=== PATIENT | female | born 1930 | race African-American/Black ===

== ENCOUNTER 2017-01-29 05:32 | Emergency (ER) | payer MEDICARE ==
[2017-01-29 04:33] LABS: BASOPHILS 0.5 %; BASOPHILS ABSOLUTE 0.04 10/3/uL (0.0-0.16); EOSINOPHILS 4.7 %; EOSINOPHILS ABSOLUTE 0.37 10/3/uL (0.0-0.53); HEMATOCRIT 40.5 % (36.0-48.0); HEMOGLOBIN 13.8 g/dL (12.0-16.0); IMMATURE GRANULOCYTES 0.1 %; IMMATURE GRANULOCYTES ABSOLUTE 0.01 10/3/uL (0.0-0.11); LYMPHOCYTES 26.3 %; LYMPHOCYTES ABSOLUTE 2.06 10/3/uL (0.67-4.30); MEAN CORPUS HGB CONC 34.1 g/dL (32.0-36.0); MEAN CORPUSCULAR HEMOGLOB 31.8 pg (26.0-34.0); MEAN CORPUSCULAR VOLUME 93.3 fL (80-100); MEAN PLATELET VOLUME 10.2 fL (9.2-13.0); MONOCYTES ABSOLUTE 0.55 10/3/uL (0.21-1.20); NEUTROPHILS 61.4 %; PLATELET COUNT 270 10/3/uL (150-400); RBC DISTRIBUTION WIDTH 14.1 % (12.0-16.0); RED CELL COUNT 4.34 10/6/uL (4.0-5.6); WHITE BLOOD CELLS 7.8 10/3/uL (4.5-10.5)
[2017-01-29 04:35] LABS: ER CBC TAT 0 Hrs 08 MinsNP; MANUAL DIFF NO %
[2017-01-29 04:40] LABS: PARTIAL THROMBO TIME 31.4 SEC (22.5-37.2)
[2017-01-29 04:41] LABS: PROTIME (NOT ORD) 22.8 SEC (12.0-14.5)
[2017-01-29 04:48] LABS: A/G RATIO 0.9 (0.7-1.9); ALBUMIN 3.5 G/DL (3.5-5.0); BUN (BLOOD UREA NITROGEN) 11 MG/DL (6-23); CALCIUM, SERUM 9.8 MG/DL (8.5-10.4); CHLORIDE, SERUM 99 MMOL/L (96-112); CO2 (CARBON DIOXIDE) 32 MMOL/L (24-34); CREATININE 0.74 MG/DL (0.55-1.02); GFR AFRICAN AMERICAN 86 ML/MIN (>=60); GFR NON AFRICAN AMERICAN 74 ML/MIN (>=60); GLOBULIN 4.1 G/DL (2.5-4.1); GLUCOSE, SERUM 93 MG/DL (60-99); SGOT(AST) 15 U/L (5-40); SGPT(ALT) 15 U/L (5-65); SODIUM, SERUM 140 MMOL/L (135-148); TOTAL BILIRUBIN 0.5 MG/DL (0-1.2); TOTAL PROTEIN 7.6 G/DL (6.0-8.5)
[2017-01-29 04:49] LABS: ALKALINE PHOSPHATASE 71 U/L (45-117); POTASSIUM, SERUM 2.7 MMOL/L (3.5-5.3)
[2017-01-29 04:58] LABS: ASCORBIC ACID (UR NOT ORDER) NEG (NEG); BILIRUBIN, URINE NEGATIVE (NEG); ER URINALYSIS TAT 0 Hrs 00 Mins; KETONE, URINE NEGATIVE (NEG); LEUKOCYTE ESTERASE(NOT OR NEG (NEG); NITRITE (URINE) NEG (NEG); WBC (NOT ORDERED) (RFLEX) 2 (0-5)
[~2017-01-29 05:32] MED LIST: AUG500 PO; BENICAR HCT1 TA2 PO; BIAXIN5 PO; C1 PO; C5 PO; COSOPT OPH; GLUCPH PO; LOM PO; LOP100 PO; LUMIGAN OPH; NORV5 PO; P5 PO; PREDNISOL5 PO; PRILO PO; PRILOSEC40 MG PO; PRIN20 PO; TIMOLOL OP; TOPXL100 PO; ZESTRIL20 MG PO
[2017-03-31] MEDS ORDERED: ARICEPT5 PO (18:15)
[2017-03-31] MEDS ORDERED: FORTAMET1000 MG PO (18:16)
[2017-03-31] MEDS ORDERED: PRILO PO (18:16)
[2017-03-31] MEDS ORDERED: CYMBALTA60 PO (18:16)
[2017-03-31] MEDS ORDERED: BEN25 PO (18:17)
[2017-03-31] MEDS ORDERED: C5 PO (18:17)
[2017-03-31] MEDS ORDERED: BENICAR HCT1 TA2 PO (18:17)
[2017-03-31] MEDS ORDERED: COUMADIN4 MG PO (18:17)
[2017-03-31] MEDS ORDERED: REFRESH OPH (18:18)
[2017-03-31] MEDS ORDERED: COSOPT OPH (18:18)
[2017-03-31] MEDS ORDERED: ALPHAGAN OPH (18:18)
== END 2017-01-29 14:09 | disposition home or self-care (01) ==
LOC: ER 05:32
PROVIDERS: Hospitalist
DX: F03.90 Unspecified dementia, unspecified severity, without behavioral disturbance, psychotic disturbance, mood disturbance, and anxiety (principal); I10 Essential (primary) hypertension; E11.9 Type 2 diabetes mellitus without complications; Z85.3 Personal history of malignant neoplasm of breast; E78.5 Hyperlipidemia, unspecified; Z86.718 Personal history of other venous thrombosis and embolism; Z88.2 Allergy status to sulfonamides; Z79.84 Long term (current) use of oral hypoglycemic drugs; Z79.01 Long term (current) use of anticoagulants; Z79.899 Other long term (current) drug therapy
CPT/HCPCS: 70450; 80053; 81001; 85025; 85610; 85730; 99285; A9270-GY; J0360

== ENCOUNTER 2017-03-31 18:23 | Inpatient (IN) | payer MEDICARE ==
--- NOTE | ~2017-03-31 | HP ---
History And Physical [facility] [address] [place]. [address] NAME: CHARLY BAIN : 32 STATUS : ADM IN [facility]#: [id number] AGE: 86 ADM/REG DATE : 03/31/17 MR#: [id number] REPORT SERV DATE: 04/01/17 DICTATED BY: ANIKA VALLADARES DATE: 03/31/17 REPORT STATUS : Draft TRANSCRIBED BY: MODL DATE: 03/31/17 DATE OF ADMISSION: 03/31/2017 POINT OF ENTRY: [facility] Emergency Department. CHIEF COMPLAINT: Falls. HISTORY OF PRESENT ILLNESS: Ms. Bain is an 86-year-old female with a history of dementia, hypertension, ceh-vqrsczc-qzgejnome diabetes mellitus type 2, as well as remote history of DVT on anticoagulation, who presents to the emergency department today with reports of multiple falls at home. The patient lives with her daughter who provides most of the history secondary to patient's dementia. She states that on Saturday the patient had initial mechanical fall and then was put back into bed, and shortly after that, had a second mechanical fall, and unfortunately, daughter was unable to get her back up into bed as the patient was not cooperative and was "stiffening up." The patient was on the ground for an undetermined amount of time until daughter did get additional family members to get her up off the ground and get her to be seen in the ER. Initial evaluation in the emergency department notable for a CPK of 1755. CT of the brain was negative. Labs also notable for a potassium of 2.4. She was also noted to be very hypertensive with systolics greater than 200. The patient was started on some IV fluids with potassium admitted to the Hospitalist Service. Daughter reports that she is usually fairly stable on her feet. She did have a fall back in January as well. Denies any recent fevers, night sweats, chills, chest pain, palpitations, shortness of breath, abdominal pain, nausea, vomiting, diarrhea, constipation, dysuria, lower extremity edema, melena, hematochezia, or hemoptysis. The patient is not currently reporting any additional pain status post recent falls. REVIEW OF SYSTEMS: Comprehensive review of systems otherwise negative unless listed in history of present illness. PREVIOUS MEDICAL HISTORY: 1. Dementia. 2. Hypertension. 3. Hyperlipidemia. 4. Remote history of left breast cancer, status post lumpectomy. 5. Gastroesophageal reflux disease. 6. Iln-edpcctr-kmowbwsnj diabetes mellitus type 2. 7. Glaucoma. 8. Remote history of DVT, appears to be a provoked DVT, still on anticoagulation. SURGICAL HISTORY: History And Physical [facility] [address] [facility] [place]. [address] NAME: CHARLY BAIN : 31 STATUS : ADM IN PAT#: [id number] AGE: 86 ADM/REG DATE : 03/31/17 MR#: [id number] REPORT SERV DATE: 04/01/17 DICTATED BY: ANIKA VALLADARES DATE: 03/31/17 REPORT STATUS : Draft TRANSCRIBED BY: KIM DATE: 03/31/17 1. Left breast lumpectomy. 2. Abdominal hysterectomy. 3. Bilateral total knee. ALLERGIES: SULFA DRUGS. HOME MEDICATIONS: 1. Artificial Tears b.i.d. p.r.n. 2. Alphagan one drop b.i.d. both eyes. 3. Benadryl 25 mg q.6 hours p.r.n. 4. Aricept 5 mg daily. 5. Cosopt eyedrops both eyes b.i.d. 6. Cymbalta 60 mg daily. 7. Metformin ER 1000 mg b.i.d. 8. Benicar HCT one tab daily. 9. Prilosec 20 mg daily. 10.Coumadin 4 mg Saturday, Saturday, and Saturday. 11.Coumadin 5 mg Saturday, Saturday, , and Saturday. SOCIAL HISTORY: Denies any tobacco, alcohol, or illicits. Lives with her daughter. FAMILY MEDICAL HISTORY: Extensive family history of stroke in mom, dad, and siblings. LABS AND IMAGIN. White count is 11.1, hemoglobin is 14.9, hematocrit is 43.8, platelet count is 269. INR is pending. 2. Sodium is 143, potassium 2.4, chloride 100, carbon dioxide 36, BUN 17, creatinine 0.78, glucose is 113, calcium is 10.1, protein is 7.5, albumin is 3.4, bilirubin is 0.9, ALT is 28, AST is 61, alkaline phosphatase is 51, and magnesium is pending. 3. Lipase 49. 4. CPK 1755. 5. CT scan of the brain shows no acute cerebrovascular accident or hemorrhage or bleed, shows some stable moderate to advanced involutional deep white matter changes. 6. Urinalysis: Specific gravity is 1.023, moderate blood with 4 red blood cells per high- powered field with 7 white blood cells but negative nitrites, negative leukocyte esterase. 7. EKG per my review shows normal sinus rhythm with a left anterior fascicular block and some LVH changes. No evidence of any acute ischemia or infarction. QTc is 486. PHYSICAL EXAMINATION: VITAL SIGNS: Temperature is 98.3 degrees Fahrenheit, pulse is 79, respirations 22, saturating 100% on room air. Blood pressure is 209/100. On recheck, it is now 195/96. Pulse is 79. GENERAL: The patient is awake, alert, in no acute distress. Resting comfortably in bed. She is an elderly female in no acute distress who smells of urine. Family is at bedside. HEENT: Atraumatic and normocephalic. Slightly dry mucous membranes. Pupils are equal, History And Physical [address] [address] NAME: CHARLY BAIN : 32 STATUS : ADM IN [facility]#: [id number] AGE: 86 ADM/REG DATE : 03/31/17 MR#: [id number] REPORT SERV DATE: 04/01/17 DICTATED BY: ANIKA VALLADARES DATE: 03/31/17 REPORT STATUS : Draft TRANSCRIBED BY: KIM DATE: 03/31/17 round, reactive to light and accommodation. Extraocular eye movements intact. No scleral icterus. NECK: No jugular venous distention. No carotid bruits. CARDIAC: Regular rate and rhythm. No murmurs or gallops. Normal S1, S2. LUNGS: Clear to auscultation bilaterally. ABDOMEN: Soft, mildly tender to palpation in the bilateral upper quadrants. No rebound, guarding, or rigidity. EXTREMITIES: Warm, perfused. No cyanosis, clubbing, or edema. MUSCULOSKELETAL: She is not tender to palpation over the hip region or knees or lower back. SKIN: Warm and dry. PSYCH: Affect appropriate. NEURO: She is alert and oriented to person only. She is able to provide some history. Cranial nerves 2 through 12 are grossly intact. Speech is normal. Gait not assessed. ASSESSMENT: Ms. Bain is an 86-year-old female who suffered two mechanical falls on Saturday with some unknown amount of time on the ground, now with rhabdomyolysis. PROBLEM LIST: 1. Rhabdomyolysis. 2. Hypokalemia. 3. Hypertension. 4. Recurrent mechanical falls. 5. Remote history of DVT on Coumadin. 6. Dementia. PLAN: 1. Rhabdomyolysis. Provide aggressive IV fluid hydration. She is not on a statin. Suspect this is all traumatic induced. Continue to monitor. Repeat CPK in the morning. 2. Recurrent mechanical falls. Physical therapy evaluation given that she is on Coumadin. 3. Hypokalemia. Aggressive repletion. She has received 40 of oral potassium here in the ER as well as infusion with potassium containing IV fluids. We will put her on cardiac monitoring. There are no EKG changes at this time. Magnesium level is pending. 4. Hypertension. Holding the patient's antihypertensive. We will substitute with lisinopril as well as low-dose Norvasc and IV hydralazine p.r.n. 5. Remote history of DVT. Per discussion with daughter appears to be a provoked DVT about 10 years ago in the setting of a total knee replacement. Unclear as to why she is still on Coumadin especially given the patient's advanced age, glaucoma, dementia, and recurrent falls. I will defer to her primary care physician whether or not she needs to be on Coumadin. 6. DVT prophylaxis. She is on Coumadin. INR is pending. CODE STATUS: The patient wished to be full code. JCB/MODL History And Physical [address] [address] NAME: CHARLY BAIN : 32 STATUS : ADM IN PAT#: [id number] AGE: 86 ADM/REG DATE : 03/31/17 MR#: [id number] REPORT SERV DATE: 04/01/17 DICTATED BY: ANIKA VALLADARES DATE: 03/31/17 REPORT STATUS : Draft TRANSCRIBED BY: KIM DATE: 03/31/17 Anika Valladares MD / [id number] CC: Trinh Tinajero DO
--- NOTE | ~2017-03-31 | CN ---
Consultation Report [facility] [address] [place]. [address] NAME: CHARLY BAIN : 32 STATUS : ADM IN [facility]#: [id number] AGE: 86 ADM/REG DATE : 03/31/17 MR#: [id number] REPORT SERV DATE: 04/03/17 DICTATED BY: KIM HAGER DATE: 04/03/17 REPORT STATUS : Draft TRANSCRIBED BY: MODCatherine DATE: 04/03/17 CONSULTATION REPORT DATE OF CONSULTATION: 04/03/2017 REASON FOR CONSULTATION: Right ankle pain. HISTORY OF PRESENT ILLNESS: Charly Bain is a demented 86-year-old female who suffered two falls this past Saturday. Her daughter is in the room with her today and states that she spent approximately eight hours on the floor. She was eventually brought to the hospital where she was diagnosed with rhabdomyolysis. The patient's daughter states that ankle pain was not an original complaint. She states that over the past couple of days she has developed the slow onset of right ankle pain. Today, actually, she is also complaining of left ankle pain. There are no open skin lesions. There is no known trauma to the ankle during these falls. No history of significant ankle pain before, although she has had some gout attacks in the past. PAST MEDICAL HISTORY: Significant for dementia; hypertension; hyperlipidemia; left breast cancer, status post lumpectomy; GERD; non-insulin dependent diabetes type 2; glaucoma; remote history of DVT, still on anticoagulation. PAST SURGICAL HISTORY: See above. Bilateral total knees and abdominal hysterectomy. ALLERGIES: SULFA DRUGS. HOME MEDICATIONS: Artificial Tears, Alphagan, Benadryl, Aricept, Cosopt, Cymbalta, metformin, Benicar, Prilosec, and Coumadin. SOCIAL HISTORY: Lives with her daughter. Her daughter is present in the room with her today. They deny any use of tobacco, alcohol, or illicit drugs. FAMILY MEDICAL HISTORY: Extensive family history of stroke in mom and dad as well as siblings. PHYSICAL EXAMINATION: GENERAL: Reveals that she is lying in bed, in no acute distress. VITAL SIGNS: Temp is 99.6. She is 95% on room air. Respirations are 16. She is 5 feet and 2 inches with 184 pounds with a BMI of 33. HEENT: Her head is atraumatic. Pupils are equal to light and reactive. MUSCULOSKELETAL: No tenderness to gentle range of motion of her C-spine. Gentle range of motion of her bilateral upper extremities and lower extremities reveals no tenderness. CHEST: Nonlabored breathing. HEART: Regular rate. ABDOMEN: Nontender. Consultation Report [facility] [address] [place]. [address] NAME: CHARLY BAIN : 32 STATUS : ADM IN [facility]#: [id number] AGE: 86 ADM/REG DATE : 03/31/17 MR#: [id number] REPORT SERV DATE: 04/03/17 DICTATED BY: KIM HAGER DATE: 04/03/17 REPORT STATUS : Draft TRANSCRIBED BY: KIM DATE: 04/03/17 EXTREMITIES: Examination of the bilateral ankles reveals generalized edema. Negative calf pain. Negative Homans. Gentle range of motion of her bilateral ankles elicit some discomfort. No tenderness with palpation of the forefoot, midfoot, or hindfoot. There is no lymphatic streaking. No palpable loculations. No additional abnormalities are noted. X-RAYS: X-rays of the right ankle on 04/02/2017 showed no evidence of acute trauma. X-rays of the right foot on 04/02/2017 showed some talonavicular degenerative joint disease. No evidence of acute trauma seen. Doppler exam was negative for DVT on the right. LABORATORY DATA: Lab work reveals a white count of 11.5 and hemoglobin is 13. HbA1c is 5.8. IMPRESSION: 1. Two falls from standing height with rhabdomyolysis. 2. Dementia. 3. Bilateral ankle pain, possible ankle sprain. 4. Hgv-ajyslzm-abwxfgnua diabetes. 5. Gout. 6. Remote deep venous thrombosis. PLAN: Lengthy discussion with the daughter regarding her diagnosis and treatment options. It is possible that this represents an acute ligamentous injury to her right ankle, although this did not appear to hurt the day of the fall, according to her daughter. She does actually have some mild symptoms on the left side as well. Daughter states she has a past history of gout, this would be another diagnostic possibility. As the x-rays were negative for acute trauma, I recommended the use of bilateral Juan C wraps for gentle compression. She can certainly ice and elevate these ankles. Hoping to avoid the use of any brace or boot. I would ask that she be weightbearing as tolerated with the use of a walker. I gave the daughter copy of my business card and asked her to call us with if the pain should not improve upon discharge. Please feel free to call me on my cell phone at with additional questions or concerns. I appreciate the opportunity to participate in the care of this patient. I spent 55 minutes working up this consult including [id number] time with the patient, review of the medical records and developing and discussing a treatment plan with the patient and the family. HEATHER/KIM Kim Hager MD Consultation Report [address] [place]. [address] NAME: CHARLY BAIN : 31 STATUS : ADM IN PAT#: [id number] AGE: 86 ADM/REG DATE : 03/31/17 MR#: [id number] REPORT SERV DATE: 04/03/17 DICTATED BY: KIM HAGER DATE: 04/03/17 REPORT STATUS : Draft TRANSCRIBED BY: KIM DATE: 04/03/17 / [id number] CC: Trinh Tinajero DO
--- NOTE | ~2017-03-31 | CN ---
Consultation Report [facility] [address] [place]. [address] NAME: CHARLY GARCIA : 31 STATUS : ADM IN PAT#: [id number] AGE: 86 ADM/REG DATE : 03/31/17 MR#: [id number] REPORT SERV DATE: 04/02/17 DICTATED BY: YASIR ELIZABETH DATE: 04/01/17 REPORT STATUS : Draft TRANSCRIBED BY: KIM DATE: 04/01/17 PSYCHIATRIC CONSULTATION DATE OF CONSULTATION: 04/01/2017 I reviewed this patient's medical record. I discussed the patient's history with her daughter, Elijah, who was at the bedside. I discussed the patient's status with nurse practitioner, Dudley. HISTORY OF PRESENT ILLNESS: She was admitted with a history of falls occurring at her home. Following the most recent fall, she was down for some time and she presented with evidence of rhabdomyolysis. I was consulted to address dementia with hallucinations. PAST PSYCHIATRIC HISTORY: Her daughter reported that her mother started having difficulty remembering numbers sometime during the past year. She started experiencing visual hallucinations only within the past two months. She sees and talks to imaginary people. During and following her most recent fall, she was combative. A few weeks ago she was started on Aricept with good effect. Her daughter reported that her hallucinations stopped or became less frequent following the initiation of Aricept. Her daughter attributed the patient's most recent deterioration in the past few days to the lack of Aricept. Apparently, she ran out of that medication about a week ago. SOCIAL HISTORY: She lives with her daughter. FAMILY HISTORY: There are multiple members with diagnoses of schizophrenia and bipolar disorder. MENTAL STATUS: She was easily aroused from sleep. She had difficulty with her sight. 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 She was disoriented to month, year, and place. She thought she was in her home. She knew her home address including the zip code. She was oriented to her daughter, who was at the bedside. DIAGNOSIS: Dementia, not otherwise specified. The prominence of visual hallucinations suggest the possibility of a Lewy body type dementia or they may be related to her blindness. RECOMMENDATIONS: I agree with restoring Aricept. I will sign off. TITO/KIM Yasir Elizabeth M.D. Consultation Report [place] [address] [place]. [address] NAME: CHARLY GARCIA : 31 STATUS : ADM IN PAT#: [id number] AGE: 86 ADM/REG DATE : 03/31/17 MR#: [id number] REPORT SERV DATE: 04/02/17 DICTATED BY: YAISR ELIZABETH DATE: 04/01/17 REPORT STATUS : Draft TRANSCRIBED BY: MODL DATE: 04/01/17 / [id number] CC: Trinh Tinajero,
--- NOTE | ~2017-03-31 | DS ---
Discharge Summary [place] [address] [facility] [place]. [address] NAME: CHARLY BAIN : 32 STATUS : DIS IN PAT#: [id number] AGE: 86 ADM/REG DATE : 03/31/17 MR#: [id number] REPORT SERV DATE: 04/05/17 DICTATED BY: ANAYELI ANTON DATE: 04/04/17 REPORT STATUS : Draft TRANSCRIBED BY: MODL DATE: 04/04/17 ADMISSION DATE: 03/31/2017 DISCHARGE DATE: 04/04/2017 She was admitted to the Hospitalist Service. CONSULTANTS: Dr. Thuan Smith, Psychiatry and Dr. German Meyer, Orthopedics. DISCHARGE DIAGNOSES: 1. Recurrent falls. 2. Rhabdomyolysis secondary to recurrent falls. 3. Bilateral ankle pains. 4. Hypertension. 5. Urinary tract infection. 6. History of deep venous thrombosis, on chronic warfarin. 7. Diabetes mellitus type 2. Diet controlled. 8. Dementia. IMAGING AND DIAGNOSTICS: 1. CT scan of the brain, stable, moderate to advanced diffuse cerebral involutional changes and moderate deep white matter chronic microvascular ischemic change with no acute intracranial hemorrhage or other acute intracranial pathology identified. 2. CT of the abdomen and pelvis revealed no acute traumatic injury identified within the abdomen or pelvis. No acute fracture or dislocation identified; atherosclerotic vascular disease. Finding compatible with fecal stasis; status post hysterectomy; atrophic pancreas; degenerative changes in the visualized spine with diffuse bony demineralization. 3. Portable chest x-ray showed no acute cardiopulmonary abnormality. 4. Right ankle x-ray showed medial and lateral soft tissue swelling. Ligamentous injury cannot be excluded. 5. Foot x-ray of the right foot showed no acute fracture or dislocation. 6. Venous duplex of the right lower extremity revealed no right lower extremity venous thrombus demonstrated. LABORATORY STUDIES: 1. Discharge labs on 04/04/2017 reveal a basic metabolic panel, a sodium 137, potassium 3.7, chloride 104, CO2 of 26, BUN 7, creatinine 0.57, GFR 98, glucose 108, calcium 9.1, magnesium 1.6. 2. CBC on 04/04/2017 revealed a white count of 11, hemoglobin 13, hematocrit 38.3, platelets 231,000. 3. INR on 04/04/2017 of 2.3. HISTORY OF PRESENT ILLNESS: For complete history, please refer to admission H and P by Dr. Jose Antonio Serrano on 03/31/2017. Briefly, Ms. Bain is an 86-year-old, female, who lives with her daughter, presented to the emergency room with recent falls at home. She was likely down for at least 8 hours. She was noted to have an elevated CPK of Discharge Summary [address] [place]. [address] NAME: CHARLY BAIN : 31 STATUS : DIS IN PAT#: [id number] AGE: 86 ADM/REG DATE : 03/31/17 MR#: [id number] REPORT SERV DATE: 04/05/17 DICTATED BY: ANAYELI ANTON DATE: 04/04/17 REPORT STATUS : Draft TRANSCRIBED BY: KIM DATE: 04/04/17 1755 in the emergency room with rhabdomyolysis suspected. The hospitalists were asked to admit her for further evaluation and treatment. HOSPITAL COURSE: Ms. Bain was admitted to a cardiac telemetry bed with the initial diagnosis of rhabdomyolysis, hypokalemia, fall, and hypertension. Initially, chest x-ray and CT of abdomen and pelvis were ordered. Results are as above. She was provided with IV fluids, p.r.n. antiemetics, and p.r.n. pain medicine. She was also placed on sliding scale insulin level 1. Her home medicines were continued with the exception of her metformin and her Benicar HCT. Pharmacy was asked to dose her Coumadin as her initial INR was 2.7. Throughout her hospitalization, her INR did get as high as 3.5. Her Coumadin was held for 2 days. Her INR came down to 3.2 and then 2.3 respectively. Her home dose Coumadin schedule was resumed on 04/04/2017. I initially saw the patient on the morning of 04/01/2017. Her daughter was at her bedside. The daughter stated that the patient began hallucinating prior to her admission to the hospital on this past Saturday. In addition, Ms. Bain's daughter stated she had done so in the past. She was told she was likely having dementia causing the hallucinations and was placed on Aricept. Ms. Bain's daughter states that she noticed her Aricept prescription had run out. Therefore, she refilled it and gave her mother a dose of Aricept on Saturday. When I saw the patient, she was only oriented to herself, following commands, confused about whereabouts, etc. Her blood pressure was elevated minimally and her CPK came down from 1700 to 1115. She was hypokalemic and her potassium was replaced multiple times. Consult was requested from Dr. Thuan Smith for her hallucination. She was seen in consultation by Dr. Yasir Smith on the afternoon of the . He recommended continuing her Aricept and no other new treatment stating she likely had possible Lewy body type dementia. On 04/02/2017, Ms. Bain was clear mentally and now complaining of right foot and leg pain. A venous duplex of the right lower extremity was ordered as well as x- rays of the right foot and ankle results are as above. Her Coumadin was held this day as her INR was 3.5. On the , a consult was placed to Dr. Hua per the patient's request as he had previously done surgery on her right knee. As she was evaluated by Physical Therapy, she was unable to bear weight on the right lower extremity secondary to pain. She was seen in consultation at that day by Dr. German Meyer, who recommended bilateral ankle Juan C wraps and weightbearing as tolerated with a walker likely ligamentous injury or gout as the patient has a history of gout and Dr. Meyer will follow up with the patient as needed. On 04/04/2017, Ms. Bain was in no acute distress. She denied any chest pain, shortness of breath, or abdominal pain. She was oriented to time and date and self; however, she thought she was at [facility] rather than [facility]. Her nurse pointed out that she has had low-grade temp of 99.6 and 99.4; therefore, urinalysis was obtained which did show a urinary tract infection. Ms. Bain was given a dose of Ceftin 250 mg p.o. prior to her transfer to half-way facility at [facility]. Her physical exam otherwise besides the low-grade temp was stable. Her blood pressure was 137/66. She was alert and cooperative, in no acute distress. Lungs were clear bilaterally. She had a regular rate and rhythm. A 2/6 systolic ejection murmur. Abdomen was soft and nontender. Active bowel sounds. Her ankle pain had diminished, however was still presents with tenderness to palpation at both lateral ankles. Monitor showed a sinus rhythm. So, therefore, it was felt that Ms. Bain could transfer safely to [facility] to continue her rehabilitation process. DISCHARGE INSTRUCTIONS: Include: Discharge Summary [facility] [address] [place]. [address] NAME: CHARLY BAIN : 32 STATUS : DIS IN PAT#: [id number] AGE: 86 ADM/REG DATE : 03/31/17 MR#: [id number] REPORT SERV DATE: 04/05/17 DICTATED BY: ANAYELI ANTON DATE: 04/04/17 REPORT STATUS : Draft TRANSCRIBED BY: KIM DATE: 04/04/17 1. Diet: A mechanical soft diet is ordered with Ensure supplements. 2. Activity: PT and OT evaluate and treat. DISCHARGE MEDICATIONS: 1. Alphagan eyedrops, one drop in each eye b.i.d. 2. Colace 100 mg p.o. daily. 3. Aricept 5 mg p.o. daily. 4. Cosopt, timolol eyedrops, one drop in each eye b.i.d. 5. Cymbalta 60 mg p.o. daily. 6. Prilosec 20 mg p.o. daily. 7. Coumadin 5 mg p.o. in the evening on Saturday, Saturday, , Saturday. 8. Coumadin 4 mg p.o. in the evening on Saturday, Saturday, and Saturday. 9. Senokot two tablets p.o. daily. Hold for loose stool. 10.Tylenol 650 mg p.o. q.4 rectally p.r.n. 11.Benadryl 25 mg p.o. q.6 hours p.r.n. 12.Metformin 1000 mg p.o. b.i.d. 13.Zofran 4 mg p.o. every 4 hours p.r.n. 14.Benicar HCTZ 40/25 mg one p.o. daily. 15.Ceftin 250 mg p.o. b.i.d. x5 days. OTHER DISCHARGE INSTRUCTIONS: Include Ms. Bain will follow up with her primary care provider after discharge from rehab, who is Vish Kramer MD. ANNABELLE/KIM Elizabeth Anton [facility]- / [id number] CC: Trinh Dove,
[~2017-03-31 18:23] MED LIST changes: +ALPHAGAN OPH; +ARICEPT5 PO; +BEN25 PO; +COUMADIN4 MG PO; +CYMBALTA60 PO; +FORTAMET1000 MG PO; +REFRESH OPH
[2017-03-31 18:49] LABS: BASOPHILS 0.3 %; BASOPHILS ABSOLUTE 0.03 10/3/uL (0.0-0.16); EOSINOPHILS 0.5 %; EOSINOPHILS ABSOLUTE 0.06 10/3/uL (0.0-0.53); HEMATOCRIT 43.8 % (36.0-48.0); HEMOGLOBIN 14.9 g/dL (12.0-16.0); IMMATURE GRANULOCYTES 0.3 %; IMMATURE GRANULOCYTES ABSOLUTE 0.03 10/3/uL (0.0-0.11); LYMPHOCYTES ABSOLUTE 1.78 10/3/uL (0.67-4.30); MANUAL DIFF NO %; MEAN CORPUSCULAR HEMOGLOB 30.7 pg (26.0-34.0); MEAN CORPUSCULAR VOLUME 90.3 fL (80-100); MEAN PLATELET VOLUME 10.2 fL (9.2-13.0); MONOCYTES 10.2 %; MONOCYTES ABSOLUTE 1.13 10/3/uL (0.21-1.20); NEUTROPHILS 72.7 %; NEUTROPHILS ABSOLUTE 8.08 10/3/uL (2.02-8.40); PLATELET COUNT 269 10/3/uL (150-400); RBC DISTRIBUTION WIDTH 13.9 % (12.0-16.0); RED CELL COUNT 4.85 10/6/uL (4.0-5.6); WHITE BLOOD CELLS 11.1 10/3/uL (4.5-10.5)
[2017-03-31 19:07] LABS: A/G RATIO 0.8 (0.7-1.9); ALBUMIN 3.4 G/DL (3.5-5.0); CALCIUM, SERUM 10.1 MG/DL (8.5-10.4); CHLORIDE, SERUM 100 MMOL/L (96-112); CO2 (CARBON DIOXIDE) 36 MMOL/L (24-34); CREATININE 0.78 MG/DL (0.55-1.02); GFR AFRICAN AMERICAN 80 ML/MIN (>=60); GFR NON AFRICAN AMERICAN 69 ML/MIN (>=60); GLOBULIN 4.1 G/DL (2.5-4.1); SGOT(AST) 61 U/L (5-40); SGPT(ALT) 28 U/L (5-65); SODIUM, SERUM 143 MMOL/L (135-148); TOTAL BILIRUBIN 0.9 MG/DL (0-1.2); TOTAL PROTEIN 7.5 G/DL (6.0-8.5)
[2017-03-31 19:08] LABS: ALKALINE PHOSPHATASE 51 U/L (45-117); BUN (BLOOD UREA NITROGEN) 17 MG/DL (6-23); GLUCOSE, SERUM 113 MG/DL (60-99); POTASSIUM, SERUM 2.4 MMOL/L (3.5-5.3)
[2017-03-31 19:24] LABS: CPK (IF ELEVATED MB BANDS) 1755 U/L (0-200)
[2017-03-31 19:41] LABS: CK-MB 11.9 NG/ML; CKMB INDEX (NOT ORD) 0.7
[2017-03-31 19:50] LABS: ASCORBIC ACID (UR NOT ORDER) 20 (NEG); BILIRUBIN, URINE NEGATIVE (NEG); ER URINALYSIS TAT 0 Hrs 22 Mins; KETONE, URINE TRACE MG/DL (NEG); LEUKOCYTE ESTERASE(NOT OR NEG (NEG); NITRITE (URINE) NEG (NEG); WBC (NOT ORDERED) (RFLEX) 7 (0-5)
[2017-03-31 20:59] LABS: MYOGLOBIN, SERUM 979 NG/ML (0-85)
[2017-03-31 23:41] LABS: INTERNATIONAL NORMAL RATI 2.7 UNITS (-)
[2017-03-31 23:44] LABS: PROTIME (NOT ORD) 28.6 SEC (12.0-14.5)
[2017-03-31 23:53] LABS: FREE T4 1.12 NG/DL (0.76-1.46)
[2017-03-31 23:58] LABS: TROPONIN I 0.06 NG/ML (<0.05); ULTRASENSITIVE TSH 2.71 MCIU/ML (0.358-3.740)
[2017-04-01 05:14] LABS: BASOPHILS 0.3 %; BASOPHILS ABSOLUTE 0.03 10/3/uL (0.0-0.16); EOSINOPHILS 2.1 %; EOSINOPHILS ABSOLUTE 0.22 10/3/uL (0.0-0.53); HEMATOCRIT 39.6 % (36.0-48.0); HEMOGLOBIN 13.4 g/dL (12.0-16.0); IMMATURE GRANULOCYTES 0.3 %; IMMATURE GRANULOCYTES ABSOLUTE 0.03 10/3/uL (0.0-0.11); LYMPHOCYTES ABSOLUTE 1.89 10/3/uL (0.67-4.30); MEAN CORPUS HGB CONC 33.8 g/dL (32.0-36.0); MEAN CORPUSCULAR HEMOGLOB 30.5 pg (26.0-34.0); MEAN PLATELET VOLUME 10.1 fL (9.2-13.0); MONOCYTES 8.7 %; MONOCYTES ABSOLUTE 0.91 10/3/uL (0.21-1.20); NEUTROPHILS 70.6 %; NEUTROPHILS ABSOLUTE 7.41 10/3/uL (2.02-8.40); PLATELET COUNT 277 10/3/uL (150-400); RBC DISTRIBUTION WIDTH 13.7 % (12.0-16.0); WHITE BLOOD CELLS 10.5 10/3/uL (4.5-10.5)
[2017-04-01 05:20] LABS: MANUAL DIFF NO %
[2017-04-01 05:28] LABS: PROTIME (NOT ORD) 30.7 SEC (12.0-14.5)
[2017-04-01 05:50] LABS: CALCIUM, SERUM 9.3 MG/DL (8.5-10.4); CHLORIDE, SERUM 103 MMOL/L (96-112); CO2 (CARBON DIOXIDE) 32 MMOL/L (24-34); CPK 1115 U/L (0-200); CREATININE 0.56 MG/DL (0.55-1.02); GFR AFRICAN AMERICAN 99 ML/MIN (>=60); GFR NON AFRICAN AMERICAN 85 ML/MIN (>=60); GLUCOSE, SERUM 120 MG/DL (60-99); SODIUM, SERUM 141 MMOL/L (135-148)
[2017-04-01 05:54] LABS: BUN (BLOOD UREA NITROGEN) 11 MG/DL (6-23)
[2017-04-01 12:54] LABS: POTASSIUM, SERUM 2.9 MMOL/L (3.5-5.3)
[2017-04-02 06:06] LABS: BASOPHILS 0.2 %; BASOPHILS ABSOLUTE 0.02 10/3/uL (0.0-0.16); EOSINOPHILS 1.6 %; EOSINOPHILS ABSOLUTE 0.17 10/3/uL (0.0-0.53); HEMATOCRIT 39.3 % (36.0-48.0); HEMOGLOBIN 13.1 g/dL (12.0-16.0); IMMATURE GRANULOCYTES 0.2 %; IMMATURE GRANULOCYTES ABSOLUTE 0.02 10/3/uL (0.0-0.11); LYMPHOCYTES 15.6 %; LYMPHOCYTES ABSOLUTE 1.63 10/3/uL (0.67-4.30); MEAN CORPUS HGB CONC 33.3 g/dL (32.0-36.0); MEAN CORPUSCULAR HEMOGLOB 30.3 pg (26.0-34.0); MEAN CORPUSCULAR VOLUME 90.8 fL (80-100); MONOCYTES 8.3 %; MONOCYTES ABSOLUTE 0.87 10/3/uL (0.21-1.20); NEUTROPHILS 74.1 %; NEUTROPHILS ABSOLUTE 7.77 10/3/uL (2.02-8.40); PLATELET COUNT 256 10/3/uL (150-400); RBC DISTRIBUTION WIDTH 14.3 % (12.0-16.0); RED CELL COUNT 4.33 10/6/uL (4.0-5.6); WHITE BLOOD CELLS 10.5 10/3/uL (4.5-10.5)
[2017-04-02 06:14] LABS: MANUAL DIFF NO %
[2017-04-02 06:16] LABS: BUN (BLOOD UREA NITROGEN) 9 MG/DL (6-23); CALCIUM, SERUM 9.2 MG/DL (8.5-10.4); CHLORIDE, SERUM 105 MMOL/L (96-112); CO2 (CARBON DIOXIDE) 29 MMOL/L (24-34); CREATININE 0.64 MG/DL (0.55-1.02); GFR AFRICAN AMERICAN 94 ML/MIN (>=60); GFR NON AFRICAN AMERICAN 81 ML/MIN (>=60); GLUCOSE, SERUM 107 MG/DL (60-99); INTERNATIONAL NORMAL RATI 3.5 UNITS (-); POTASSIUM, SERUM 3.6 MMOL/L (3.5-5.3); PROTIME (NOT ORD) 34.6 SEC (12.0-14.5); SODIUM, SERUM 143 MMOL/L (135-148)
[2017-04-02 06:19] LABS: CPK 466 U/L (0-200)
[2017-04-03 06:26] LABS: INTERNATIONAL NORMAL RATI 3.2 UNITS (-); PROTIME (NOT ORD) 32.2 SEC (12.0-14.5)
[2017-04-03 06:38] LABS: BUN (BLOOD UREA NITROGEN) 8 MG/DL (6-23); CALCIUM, SERUM 9.3 MG/DL (8.5-10.4); CHLORIDE, SERUM 105 MMOL/L (96-112); CREATININE 0.59 MG/DL (0.55-1.02); GFR AFRICAN AMERICAN 97 ML/MIN (>=60); GFR NON AFRICAN AMERICAN 84 ML/MIN (>=60); GLUCOSE, SERUM 93 MG/DL (60-99); POTASSIUM, SERUM 3.6 MMOL/L (3.5-5.3); SODIUM, SERUM 137 MMOL/L (135-148)
[2017-04-03 06:39] LABS: CO2 (CARBON DIOXIDE) 23 MMOL/L (24-34); CPK 192 U/L (0-200)
[2017-04-03 08:53] LABS: BASOPHILS 0.3 %; BASOPHILS ABSOLUTE 0.03 10/3/uL (0.0-0.16); EOSINOPHILS 1.7 %; EOSINOPHILS ABSOLUTE 0.19 10/3/uL (0.0-0.53); HEMATOCRIT 38.8 % (36.0-48.0); IMMATURE GRANULOCYTES 0.3 %; IMMATURE GRANULOCYTES ABSOLUTE 0.03 10/3/uL (0.0-0.11); LYMPHOCYTES 14.7 %; LYMPHOCYTES ABSOLUTE 1.68 10/3/uL (0.67-4.30); MEAN CORPUS HGB CONC 33.5 g/dL (32.0-36.0); MEAN CORPUSCULAR HEMOGLOB 30.7 pg (26.0-34.0); MEAN CORPUSCULAR VOLUME 91.5 fL (80-100); MEAN PLATELET VOLUME 10.3 fL (9.2-13.0); MONOCYTES 10.8 %; MONOCYTES ABSOLUTE 1.24 10/3/uL (0.21-1.20); NEUTROPHILS 72.2 %; NEUTROPHILS ABSOLUTE 8.29 10/3/uL (2.02-8.40); PLATELET COUNT 249 10/3/uL (150-400); RBC DISTRIBUTION WIDTH 14.2 % (12.0-16.0); RED CELL COUNT 4.24 10/6/uL (4.0-5.6); WHITE BLOOD CELLS 11.5 10/3/uL (4.5-10.5)
[2017-04-03 08:55] LABS: MANUAL DIFF NO %
[2017-04-04 05:38] LABS: INTERNATIONAL NORMAL RATI 2.3 UNITS (-)
[2017-04-04 05:41] LABS: PROTIME (NOT ORD) 24.9 SEC (12.0-14.5)
[2017-04-04 05:47] LABS: BUN (BLOOD UREA NITROGEN) 7 MG/DL (6-23); CALCIUM, SERUM 9.1 MG/DL (8.5-10.4); CHLORIDE, SERUM 104 MMOL/L (96-112); CO2 (CARBON DIOXIDE) 26 MMOL/L (24-34); CREATININE 0.57 MG/DL (0.55-1.02); GFR AFRICAN AMERICAN 98 ML/MIN (>=60); GFR NON AFRICAN AMERICAN 85 ML/MIN (>=60); GLUCOSE, SERUM 108 MG/DL (60-99); POTASSIUM, SERUM 3.7 MMOL/L (3.5-5.3); SODIUM, SERUM 137 MMOL/L (135-148)
[2017-04-04 07:21] LABS: BASOPHILS 0.4 %; BASOPHILS ABSOLUTE 0.04 10/3/uL (0.0-0.16); EOSINOPHILS 1.6 %; EOSINOPHILS ABSOLUTE 0.17 10/3/uL (0.0-0.53); HEMATOCRIT 38.3 % (36.0-48.0); IMMATURE GRANULOCYTES 0.5 %; IMMATURE GRANULOCYTES ABSOLUTE 0.05 10/3/uL (0.0-0.11); LYMPHOCYTES 13.2 %; LYMPHOCYTES ABSOLUTE 1.45 10/3/uL (0.67-4.30); MANUAL DIFF NO %; MEAN CORPUS HGB CONC 33.9 g/dL (32.0-36.0); MEAN CORPUSCULAR HEMOGLOB 30.7 pg (26.0-34.0); MEAN CORPUSCULAR VOLUME 90.3 fL (80-100); MEAN PLATELET VOLUME 9.8 fL (9.2-13.0); MONOCYTES 13.3 %; MONOCYTES ABSOLUTE 1.46 10/3/uL (0.21-1.20); NEUTROPHILS ABSOLUTE 7.79 10/3/uL (2.02-8.40); PLATELET COUNT 231 10/3/uL (150-400); RED CELL COUNT 4.24 10/6/uL (4.0-5.6)
[2017-04-04 13:41] LABS: ASCORBIC ACID (UR NOT ORDER) NEG (NEG); BILIRUBIN, URINE NEGATIVE (NEG); KETONE, URINE NEGATIVE (NEG); LEUKOCYTE ESTERASE(NOT OR LARGE (NEG); WBC (NOT ORDERED) (RFLEX) 110 (0-5)
== END 2017-04-04 17:40 | DRG 566 ==
LOC: ER 18:23 → 2SO 21:54
PROVIDERS: Hospitalist; Internal Medicine; Nurse Practitioner
DX: T79.6XXA Traumatic ischemia of muscle, initial encounter (principal); G31.83 Neurocognitive disorder with Lewy bodies; F02.80 Dementia in other diseases classified elsewhere, unspecified severity, without behavioral disturbance, psychotic disturbance, mood disturbance, and anxiety; I10 Essential (primary) hypertension; E11.9 Type 2 diabetes mellitus without complications; E87.6 Hypokalemia; W18.30XA Fall on same level, unspecified, initial encounter; H40.9 Unspecified glaucoma; K21.9 Gastro-esophageal reflux disease without esophagitis; Z96.653 Presence of artificial knee joint, bilateral; S93.401A Sprain of unspecified ligament of right ankle, initial encounter; M10.9 Gout, unspecified; H54.0 Blindness, both eyes; Z82.3 Family history of stroke; Z91.81 History of falling; Y92.003 Bedroom of unspecified non-institutional (private) residence as the place of occurrence of the external cause; Z86.718 Personal history of other venous thrombosis and embolism; Z79.01 Long term (current) use of anticoagulants; Z98.890 Other specified postprocedural states; Z88.2 Allergy status to sulfonamides
CPT/HCPCS: 70450; 71010; 73610-RT; 73630-RT; 74176; 80048; 80053; 81001; 82550; 82553; 82570; 82962; 83036; 83690; 83735; 83874; 83935; 84132; 84300; 84439; 84443; 84484; 85025; 85610; 85730; 87077; 87086; 87186; 93005; 93971; 97110-GP; 97162-GP; 97530-GP; 99285; A9270-GY; J0360; J3475

== ENCOUNTER 2017-08-08 16:02 | Emergency (ER) | payer MEDICARE ==
[~2017-08-08] VITALS: Ht 157 cm; Wt 72.6 kg
[2017-08-08 17:26] LABS: BASOPHILS 0.4 %; BASOPHILS ABSOLUTE 0.04 10/3/uL (0.0-0.16); EOSINOPHILS 2.3 %; EOSINOPHILS ABSOLUTE 0.23 10/3/uL (0.0-0.53); ER CBC TAT 0 Hrs 08 Mins; HEMOGLOBIN 13.1 g/dL (12.0-16.0); IMMATURE GRANULOCYTES 0.3 %; IMMATURE GRANULOCYTES ABSOLUTE 0.03 10/3/uL (0.0-0.11); LYMPHOCYTES 17.6 %; MEAN CORPUS HGB CONC 32.8 g/dL (32.0-36.0); MEAN PLATELET VOLUME 9.5 fL (9.2-13.0); MONOCYTES 6.4 %; MONOCYTES ABSOLUTE 0.65 10/3/uL (0.21-1.20); NEUTROPHILS ABSOLUTE 7.46 10/3/uL (2.02-8.40); PLATELET COUNT 273 10/3/uL (150-400); RBC DISTRIBUTION WIDTH 14.7 % (12.0-16.0); RED CELL COUNT 4.22 10/6/uL (4.0-5.6); WHITE BLOOD CELLS 10.2 10/3/uL (4.5-10.5)
[2017-08-08 17:27] LABS: MANUAL DIFF NO %; MEAN CORPUSCULAR VOLUME 94.8 fL (80-100)
[2017-08-08 17:34] LABS: INTERNATIONAL NORMAL RATI 1.5 UNITS (-); PARTIAL THROMBO TIME 24.5 SEC (22.5-37.2); PROTIME (NOT ORD) 17.9 SEC (12.0-14.5)
[2017-08-08 17:36] LABS: ASCORBIC ACID (UR NOT ORDER) 40 (NEG); BILIRUBIN, URINE NEGATIVE (NEG); ER URINALYSIS TAT 0 Hrs 16 Mins; KETONE, URINE TRACE MG/DL (NEG); LEUKOCYTE ESTERASE(NOT OR LARGE (NEG); NITRITE (URINE) NEG (NEG); WBC (NOT ORDERED) (RFLEX) 46 (0-5)
[2017-08-08 17:44] LABS: A/G RATIO 0.7 (0.7-1.9); ALBUMIN 2.8 G/DL (3.5-5.0); ALKALINE PHOSPHATASE 50 U/L (45-117); BUN (BLOOD UREA NITROGEN) 10 MG/DL (6-23); CALCIUM, SERUM 9.4 MG/DL (8.5-10.4); CHLORIDE, SERUM 105 MMOL/L (96-112); CO2 (CARBON DIOXIDE) 23 MMOL/L (24-34); CREATININE 0.82 MG/DL (0.55-1.02); GFR AFRICAN AMERICAN 76 ML/MIN (>=60); GFR NON AFRICAN AMERICAN 65 ML/MIN (>=60); GLOBULIN 3.9 G/DL (2.5-4.1); SGOT(AST) 17 U/L (5-40); SGPT(ALT) 14 U/L (5-65); SODIUM, SERUM 139 MMOL/L (135-148); TOTAL BILIRUBIN 0.8 MG/DL (0-1.2); TOTAL PROTEIN 6.7 G/DL (6.0-8.5); TROPONIN I <0.02 NG/ML (<0.05)
[2017-08-08 17:50] LABS: GLUCOSE, SERUM 153 MG/DL (60-99)
== END 2017-08-08 21:02 | disposition home or self-care (01) ==
LOC: ER 16:02
PROVIDERS: Hospitalist
DX: N39.0 Urinary tract infection, site not specified (principal); R41.82 Altered mental status, unspecified; E87.6 Hypokalemia; I10 Essential (primary) hypertension; K21.9 Gastro-esophageal reflux disease without esophagitis; E11.9 Type 2 diabetes mellitus without complications; Z85.3 Personal history of malignant neoplasm of breast; Z88.2 Allergy status to sulfonamides; Z79.899 Other long term (current) drug therapy; Z79.84 Long term (current) use of oral hypoglycemic drugs; Z79.01 Long term (current) use of anticoagulants
CPT/HCPCS: 71010; 80053; 81001; 84484; 85025; 85610; 85730; 87077; 87086; 87186; 93005; 96374; 99285; A9270-GY